=== PATIENT | male | born 1960 | race Caucasian/White ===

== ENCOUNTER 2024-05-02 13:22 | Day surgery (SDC) | payer OTHER ==
[2024-05-01 10:55] LABS: Absolute Basophils 0.1 K/uL (0-0.5); Absolute Eosinophils 0.1 K/uL (0-0.5); Absolute Lymphocytes (CBC) 1.8 K/uL (0.7-4.9); Absolute Monocytes 0.4 K/uL (0.1-1.3); Absolute Neutrophil 2.8 K/uL (1.8-8.0); Basophils % 1.3 % (0-1.3); Eosinophils % 2.8 % (0-4.4); Hematocrit 43.4 % (39.6-49.0); Hemoglobin 14.4 g/dL (13.6-17.9); Lymphocytes % 34.7 % (15.3-44.8); MCH 31.1 pg (27.0-35.0); MCHC 33.2 g/dL (32.0-36.0); MCV 93.5 fL (80-100); MPV 9.4 fL (7.6-11.3); Monocytes % 6.7 % (3.3-12.3); Neutrophils % 54.5 % (41.7-73.7); Platelets 222 thou/uL (152-406); RBC Red Blood Cell Count 4.64 M/uL (4.33-5.43); Red Cell Distribution Width 13.1 % (12.1-15.2)
[2024-05-01 11:01] LABS: PT Prothrombin Time 10.6 SECONDS (9.5-12.5); PTT, Activated Partial Thromb 32.7 SECONDS (24.3-36.9); Protime INR 0.96
--- NOTE | 2024-05-01 11:06 | RAD REPORT ---
EXAM DESCRIPTION: RAD - Chest Single View - 05/01/2024 10:58 am CLINICAL HISTORY: PRE-OP Chest pain. COMPARISON: No comparisons FINDINGS: Portable technique limits examination quality. The lungs are grossly clear. The heart is normal in size. No displaced fractures. IMPRESSION: No acute intrathoracic process suspected.
[2024-05-01 11:16] LABS: Anion Gap 6.9 mEq/L (5.0-15.0); Potassium 3.9 mEq/L (3.5-5.1)
--- NOTE | 2024-05-01 14:50 | EKG ---
Test Date: 2024-05-01 Test Time: 10:33:16 Regulator Tester: TESSA MEASUREMENT RESULTS: Intervals: Rate: 58 MO: 206 QRSD: 98 QT: 436 QTc: 428 [place]: P: 90 MO: 206 QRS: -30 T: 18 INTERPRETIVE STATEMENTS: Sinus bradycardia Left axis deviation Abnormal ECG No previous ECG available for comparison Electronically Signed On 05-01-24 14:50:23 CDT by Atul Gaines
[2024-05-02] MEDS: NA CHLORIDE 0.9% 500 ML ONE (13:24)
[2024-05-02] MEDS ORDERED: LIDOCAINE 1% 20 ML MDV ONE (13:26)
[2024-05-02] MEDS ORDERED: HEPA 1000U/500MLS 2,000 UNIT/1,000 ML BAG IV ONE (13:26)
[2024-05-02] MEDS ORDERED: FENTANYL CITR 100 MCG/2 ML ONE (14:02)
[2024-05-02] MEDS ORDERED: ATROPINE SULF 1 MG/10 ML SYR IV ONE (14:02)
[2024-05-02] MEDS ORDERED: VERAPAMIL HCL 10 MG/4 ML VIAL IV ONE (14:02)
[2024-05-02] MEDS ORDERED: MIDAZOLAM HCL 2 MG/2 ML INJ ONE (14:02)
[2024-05-02] MEDS ORDERED: HEPARIN 10,000 UNIT/10 ML VIAL IV ONE (14:03)
[2024-05-02] MEDS ORDERED: TICAGRELOR 90 MG TABLET PO ONE (14:03)
[2024-05-02] MEDS ORDERED: HEPARIN 5000 UNIT/ML 1 ML VIAL ONE (14:03)
[2024-05-02] MEDS ORDERED: CLOPIDOGREL 75 MG TABLET ONE (14:03)
[2024-05-02] MEDS ORDERED: ASPIRIN 325 MG TAB ONE (14:03)
--- NOTE | 2024-05-02 14:18 | EKG ---
Test Date: 2024-05-01 Test Time: 10:35:34 Manager Private: TESSA MEASUREMENT RESULTS: Intervals: Rate: 60 [place]: 202 QRSD: 94 QT: 450 QTc: 450 [place]: P: 88 [place]: 202 QRS: -27 T: 16 INTERPRETIVE STATEMENTS: Normal sinus rhythm Normal ECG Compared to ECG 05/01/2024 10:33:16 Sinus bradycardia no longer present Left-axis deviation no longer present Electronically Signed On 05-02-24 14:13:03 CDT by Atul Gaines
[2024-05-02 17:03] VITALS: TEMP 97.8
[2024-05-02 18:48] VITALS: O2SAT 99
[2024-05-02 19:49] VITALS: BP 135/80
--- NOTE | 2024-05-03 02:22 | OP ---
Date of Procedure: 05/02/2024 Surgeon: MAY GOODWIN Procedures Performed: 1.Selective coronary angiogram. 2.Left heart catheterization. 3.Percutaneous coronary intervention of critical mid left anterior descending stenosis using the 2.7 5 x 16 mm Synergy drug-eluting stent overlapped proximally with 2.75 x 8 mm Synergy drug-eluting sten t due to edge dissection. Indication: Unstable angina. Access: Right radial artery, 6-Nauruan, closed with TR band. Complications: None. Bleeding: Less 50 mL. Total Sedation Time: 1 hour using fentanyl and Versed. Description Of Procedure: After risks, benefits, and alternatives were explained, the patient agreed to procedure and signed informed consent. The patient was brought into cardiac catheterization labo banner, prepped and draped in usual sterile fashion. Then, I accessed right radial artery using pedi atric micropuncture kit. Placed a 6-Nauruan [place] sheath. Took 5-Nauruan [place] 4.0 catheter into t he aortic root, engaged left main and RCA, took standard views and then exchanged for a 6-Nauruan EBU 3.5 guide. Gave systemic heparin to assure ACT level above 250 throughout the procedure. We gave al so 180 mg of Brilinta and 325 mg aspirin, and took EBU 3.5 guide over J-wire into the aortic root, en gaged left main, took a Runthrough wire into the LAD, placed it distally and then to the diagonal bra [facility], sent another wire and then used a 2.5 balloon. Lesion expanded very well and then I placed 2.75 x 16 mm Synergy drug-eluting stent with excellent expansion. However, there was proximal stent edge dissection, so I placed another 2.75 x 8 mm Synergy drug-eluting stent to overlap with the first one with excellent results. KEVIN-3 flow at the end and the diagonal branch flow did not get supervised, KEVIN-3 flow, so took the wire off and final angiogram was satisfactory, and then took the guide out and the sheath, and placed TR band with good hemostasis. Findings: 1.Left main: Large and normal. 2.LAD: Proximal segment is normal. Mid segment has 80%, and then 90% stenosis, status post success ful PCI as above. The rest of the LAD is normal. Diagonal 2 branch has ostial 50%, did not change a fter the stent. 3.Left circumflex: Large, codominant, proximal 20% stenosis. 4.RCA: Mid 50% stenosis and codominant circulation. 5.LVEDP is normal at 10 mmHg. Conclusion: 1.Severe mid LAD stenosis, status post successful PCI as above. 2.Moderate coronary artery disease, ulcerated. Recommendation: Aspirin, Brilinta, high-dose statin. Followup with me in the office in 1 week. SR/MODL Voice ID: [id number] Report ID: [id number]
== END 2024-05-02 19:40 | disposition home or self-care (01) ==
LOC: CCL 13:22
PROVIDERS: ATTEND Internal Medicine
DX: I25.110 Atherosclerotic heart disease of native coronary artery with unstable angina pectoris (principal); I10 Essential (primary) hypertension; E78.2 Mixed hyperlipidemia; Z87.891 Personal history of nicotine dependence; Z79.899 Other long term (current) drug therapy
CPT/HCPCS: 93005 ×2; 85025; 80048; 36415; 85610; 85347 ×2; 85730; 71045; 93458; 76937; C1893; Q9967; C1725; C9600; J1644; J2001; J2250; J3010; J7040; 99152; 99153; J0461